=== PATIENT | female | born 1960 | race Caucasian/White ===

== ENCOUNTER 2022-09-13 23:55 | Emergency (ER) | payer BC ==
[~2022-09-13] VITALS: Ht 157.5 cm; Wt 53.0 kg
[2022-09-14 00:06] VITALS: BP 162/93
[2022-09-14 00:15] VITALS: BP 192/94
[2022-09-14 00:19] VITALS: BP 144/93
[2022-09-14] MEDS ORDERED: [UNRECOGNIZED DRUG - OTHER] (00:21)
[2022-09-14] MEDS ORDERED: FAMOTIDINE20 M1 PO (00:22)
[2022-09-14] MEDS ORDERED: PRILOSEC20 MG/CAP PO (00:22)
[2022-09-14] MEDS ORDERED: NORVASC PO (00:22)
[2022-09-14] MEDS ORDERED: ATIVAN1 MG PO (00:23)
[2022-09-14 00:30] VITALS: BP 152/88
[2022-09-14 00:48] LABS: BASO% 0.3 % (0-3); EOS% 1.4 % (0-8); HEMATOCRIT 43.7 % (37.0-47.0); HEMOGLOBIN 14.5 g/dl (12.0-16.0); LYMPH% 26.7 % (15-41); MEAN CELL VOLUME 85.9 fL CALC (80.0-100.0); MEAN CORPUSCULAR HGB 28.5 pG CALC (26.0-32.0); MEAN CORPUSCULAR HGB CONC 33.2 g/dL CAL (32.0-36.0); MONO% 8.2 % (2-13); NEUT# 4.58 thou/uL (2.00-7.15); NEUT% 63.4 % (42-76); RED BLOOD COUNT 5.09 mill/uL (4.20-5.60); RED CELL DISTRI WIDTH 12.1 % (11.5-15.5)
[2022-09-14 00:58] LABS: ALBUMIN 5.1 g/dL (3.2-5.0); ALKALINE PHOSPHATASE 50 u/l (38-126); ANION GAP 13 (6-22 (CALC)); BILIRUBIN, TOTAL 0.7 mg/dL (0.02-1.3); BUN 13 mg/dL (8-23); BUN/CREATININE RATIO 17 (12-20 (CALC)); CARBON DIOXIDE 25 mmol/l (22-30); CHLORIDE 106 mmol/l (95-108); CREATININE 0.7 mg/dL (0.5-1.0); GFR FOR AFR.AMER. > 60 ML/MIN (>=60 (CALC)); GFR OTHER RACES > 60 ML/MIN (>=60 (CALC)); LIPASE 159 u/l (23-300); POTASSIUM 4.5 mmol/l (3.5-5.1); SGOT/AST 36 u/l (9-36); SODIUM 140 mmol/l (137-146); TOTAL PROTEIN 8.6 g/dL (6.3-8.2)
[2022-09-14 01:00] VITALS: BP 146/80
[2022-09-14] MEDS ORDERED: TORADOL PO (02:02)
[2022-09-14 02:05] VITALS: BP 146/80
== END 2022-09-14 02:17 | disposition home or self-care (01) | DRG 313 ==
LOC: ED 23:55
PROVIDERS: Family Medicine
DX: R07.89 Other chest pain (principal)